=== PATIENT | male | born 1985 | race African-American/Black ===

== ENCOUNTER 2017-08-24 14:31 | Emergency (ER) | payer SELFPAY, BC, MEDICAID ==
[2017-08-24] MEDS: DIPHTH/TET/ACEL PERTUSS (ADULT) 0.5 ML VIAL IM* (15:25)
== END 2017-08-24 16:18 | disposition home or self-care (01) ==
LOC: FTE 14:31
DX: L03.119 Cellulitis of unspecified part of limb (principal); Z23 Encounter for immunization
CPT/HCPCS: 90471; 90715; 99284-25

== ENCOUNTER 2017-09-10 15:55 | Emergency (ER) | payer SELFPAY ==
[2017-09-10] MEDS: ONDANSETRON 4 MG INJ IV (16:54)
[2017-09-10] MEDS: SOD CHLORIDE 0.9% 1,000 ML IV (16:54)
[2017-09-10 17:30] LABS: ADD MAN DIFF? NO
[2017-09-10 17:34] LABS: WHITE BLOOD COUNT 4.9 10^3/ul (4.8-10.8)
[2017-09-10 17:34] LABS: BASOPHILS % 0.8 % (0.0-2.0); EOSINOPHILS # 0.1 10^3/ul (0.0-0.5); EOSINOPHILS % 2.7 % (0.0-7.0); HEMOGLOBIN 10.9 g/dl (14.0-18.0); LYMPHOCYTES # 1.4 10^3/ul (0.8-2.9); LYMPHOCYTES % 27.7 % (15.0-51.0); MEAN CORPUSCULAR HEMOGLOBIN 22.1 pg (29.0-33.0); MEAN CORPUSCULAR HGB CONC 31.1 g/dl (32.0-37.0); MEAN PLATELET VOLUME 10.2 fl (7.4-10.4); MONOCYTE # 0.5 10^3/ul (0.3-0.9); MONOCYTES % 10.9 % (0.0-11.0); NEUTROPHIL # 2.8 10^3/ul (1.6-7.5); NEUTROPHILS % 57.7 % (39.0-77.0); PLATELET COUNT 307 10^3/UL (140-415); RED BLOOD COUNT 4.93 10^6/ul (4.70-6.10)
[2017-09-10 17:56] LABS: ALANINE AMINOTRANSFERASE 355 IU/L (13-69); ALBUMIN 4.6 g/dl (3.3-4.9); ALBUMIN/GLOBULIN RATIO 0.88; ALKALINE PHOSPHATASE 861 IU/L (42-121); ANION GAP 18 (8-16); ASPARTATE AMINO TRANSFERASE 321 IU/L (15-46); BILIRUBIN,INDIRECT 0.5 mg/dl (0-1.1); BILIRUBIN,TOTAL 1.9 mg/dl (0.2-1.3); BLOOD UREA NITROGEN 10 mg/dl (7-20); CALCIUM 9.5 mg/dl (8.4-10.2); CARBON DIOXIDE 27 mmol/L (21-31); CHLORIDE 102 mmol/L (97-110); CREATININE 0.97 mg/dl (0.61-1.24); GLUCOSE 74 mg/dl (70-220); POTASSIUM 3.9 mmol/L (3.5-5.1); SODIUM 143 mmol/L (135-144); TOTAL PROTEIN 9.8 g/dl (6.1-8.1)
[2017-09-10 18:21] LABS: ADD UMIC YES; UR ASCORBIC ACID NEGATIVE (NEGATIVE); UR BILIRUBIN (Dip) 2+ mg/dL (NEGATIVE); UR BLOOD (Dip) NEGATIVE (NEGATIVE); UR CLARITY CLEAR (CLEAR); UR COLOR AMBER (YELLOW); UR GLUCOSE (Dip) NEGATIVE (NEGATIVE); UR KETONES (Dip) NEGATIVE (NEGATIVE); UR LEUKOCYTE ESTERASE (Dip) NEGATIVE Leu/ul (NEGATIVE); UR MUCUS MODERATE /HPF (NONE SEEN); UR NITRITE (Dip) NEGATIVE (NEGATIVE); UR RBC 0 /HPF (0-5); UR SPECIFIC GRAVITY (Dip) 1.025 (1.003-1.030); UR TOTAL PROTEIN (Dip) 1+ mg/dl (NEGATIVE); UR UROBILINOGEN (Dip) 2+ mg/dL (NEGATIVE); UR WBC 3 /HPF (0-5)
[2017-09-10 18:39] LABS: LIPASE 139 U/L (23-300)
[2017-09-10 19:29] LABS: HAAIG REFLEX REFLEX FILED
[2017-09-10 20:10] LABS: HEPATITIS B SURFACE ANTIGEN NEGATIVE (NEGATIVE)
[2017-09-10 20:28] LABS: HEPATITIS B CORE ANTIBODY NEGATIVE (NEGATIVE); HEPATITIS C VIRAL ANTIBODY NEGATIVE (NEGATIVE)
== END 2017-09-10 22:28 | disposition home or self-care (01) ==
LOC: FTE 15:55
DX: R74.0 Nonspecific elevation of levels of transaminase and lactic acid dehydrogenase [LDH] (principal)
CPT/HCPCS: 74176; 76705; 80053; 81001; 83690; 85025; 86704; 86708; 86709; 86803; 87340; 96361; 96374; 99285-25

== ENCOUNTER 2017-12-06 14:29 | Emergency (ER) | payer SELFPAY ==
[2017-12-06] MEDS: HYDROCODONE/APAP (5/325) TAB PO (16:35)
== END 2017-12-06 17:12 | disposition home or self-care (01) ==
LOC: FTE 14:29
DX: M79.642 Pain in left hand (principal)
CPT/HCPCS: 73110; 73110-LT; 73130-LT; 99283-25

== ENCOUNTER 2018-06-28 13:07 | Emergency (ER) | payer SELFPAY ==
[2018-06-28] MEDS: TRIMETHOPRIM/SULFAMETHOX (DS) TAB PO (14:53)
[2018-06-28] MEDS: IBUPROFEN 600 MG TAB PO (14:53)
== END 2018-06-28 16:33 | disposition home or self-care (01) ==
LOC: FTE 13:07
DX: L03.115 Cellulitis of right lower limb (principal)
CPT/HCPCS: 73630; 99283-25

== ENCOUNTER 2018-10-22 11:32 | Emergency (ER) | payer MEDICAID | END 2018-10-22 12:27 | disposition home or self-care (01) | LOC: FTE 11:32 | DX: L73.9 Follicular disorder, unspecified (principal) | CPT/HCPCS: 99283; Z7502 ==